=== PATIENT | male | born 1960 | race Caucasian/White ===

== ENCOUNTER 2024-11-30 09:01 | Day surgery (SDC) | payer OTHER ==
[2024-11-26 10:39] VITALS: BMI 28.1
[2024-11-30 11:29] VITALS: TEMP 97.6
[2024-11-30 11:31] VITALS: BP 125/72; PULSE 65; RESP 19
== END 2024-11-30 11:51 | disposition home or self-care (01) ==
LOC: FASU-ENDO 09:01
PROVIDERS: ATTEND Internal Medicine Gastroenterology
PROC: 0DBK8ZX Excision of Ascending Colon, Via Natural or Artificial Opening Endoscopic, Diagnostic (ICD-10-PCS; principal; 2024-11-30 10:53)
DX: Z12.11 Encounter for screening for malignant neoplasm of colon (principal); D12.2 Benign neoplasm of ascending colon; K57.30 Diverticulosis of large intestine without perforation or abscess without bleeding
CPT/HCPCS: 88305-TC